=== PATIENT | female | born 2000 | race Caucasian/White ===

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

== ENCOUNTER 2018-06-16 22:39 | Emergency (ER) | payer OTHER ==
[~2018-06-16] VITALS: Ht 165.1 cm; Wt 104.5 kg
[~2018-06-16 22:39] MED LIST changes: +CIPRO 500MG TA500 MG PO; +FLAGYL500 MG PO
[2018-06-16 22:45] VITALS: BP 122/79; TEMP 98.5
[2018-06-16] MEDS ORDERED: PROZAC 20MG20 MG PO (22:50)
[2018-06-16] MEDS ORDERED: PROZAC 10MG10 MG PO (22:50)
[2018-06-16] MEDS ORDERED: MIRENA52 MG IY (22:50)
[2018-06-16 23:39] LABS: BASO # 0.1 (0.0-0.2); BASO % 0.6 % (0.0-2.0); EOS # 0.3 (0.0-0.7); EOS % 3.7 % (0-4.0); GRAN # 4.7 (1.4-6.5); GRAN % 53.5 % (42.2-75.2); HEMATOCRIT 39.2 % (35.0-45.0); HEMOGLOBIN 12.6 g/dl (12.0-15.0); LYMPH # 3.1 (1.2-3.4); LYMPH % 35.2 % (20.0-51.0); MEAN CELL VOLUME 82 fl (80.0-95.0); MEAN CORPUSCULAR HEMOGLOBIN 26 pg (26.0-32.0); MEAN CORPUSCULAR HGB CONC 32 g/dl (33.0-37.0); MEAN PLATELET VOLUME 10.7 fl (7.4-10.4); MONO # 0.6 (0.1-0.6); MONO % 6.8 % (1.7-9.3); PLATELET COUNT 241 K/mm3 (130-400); RED BLOOD COUNT 4.77 M/mm3 (4.10-5.30); REDCELL DISTRIBUTION WIDTH-CV 15.1 % (11.5-14.5)
[2018-06-16 23:44] LABS: PROTHROMBIN TIME 11.9 SECONDS (9.7-12.8)
[2018-06-16 23:52] LABS: ALANINE AMINOTRANSFERASE 22 U/L (9-52); ALKALINE PHOSPHATASE 84 U/L (50-136); ANION GAP 9 mmol/L (7-16); AST,SGOT 20 U/L (15-37); BILIRUBIN,TOTAL 0.2 mg/dL (0.0-1.0); BLOOD UREA NITROGEN 11 mg/dL (7-17); C-REACTIVE PROTEIN 1.2 mg/dL (0.0-0.9); CALCIUM 9.3 mg/dL (8.4-10.2); CARBON DIOXIDE 26 mmol/L (22-30); CHLORIDE 103 mmol/L (98-107); CREATININE, serum 0.64 (0.52-1.25); GLUCOSE 96 mg/dL (74-106); MAGNESIUM 1.7 mg/dL (1.6-2.3); POTASSIUM 4.1 mmol/L (3.4-5.0); SODIUM 137 mmol/L (137-145); TOTAL PROTEIN 7.6 gm/dL (6.4-8.2)
[2018-06-17 00:01] LABS: TROPONIN-I < 0.012 ng/mL (0.000-0.035)
[2018-06-17 00:38] VITALS: PULSE 67
== END 2018-06-17 00:36 | disposition home or self-care (01) ==
LOC: COL.ER 22:39
PROVIDERS: Emergency Medicine
DX: N64.4 Mastodynia (principal); R07.9 Chest pain, unspecified; Z87.891 Personal history of nicotine dependence

== ENCOUNTER 2018-06-25 12:17 | Emergency (ER) | payer OTHER ==
[~2018-06-25] VITALS: Ht 165.1 cm; Wt 104.5 kg
[~2018-06-25 12:17] MED LIST changes: +MIRENA52 MG IY; +PROZAC 10MG10 MG PO; +PROZAC 20MG20 MG PO
[2018-06-25 12:33] VITALS: BP 129/91
[2018-06-25] MEDS ORDERED: BACTRIM DS 8001 TAB PO (13:45)
[2018-06-25] MEDS ORDERED: CEPHALEXIN500 M1 PO (13:45)
[2018-06-25 14:12] VITALS: TEMP 98.7
[2018-06-25 14:28] VITALS: PULSE 119
== END 2018-06-25 14:28 | disposition home or self-care (01) ==
LOC: COL.ER 12:17
DX: L03.112 Cellulitis of left axilla (principal); Z87.891 Personal history of nicotine dependence

== ENCOUNTER 2018-11-14 01:38 | Emergency (ER) | payer OTHER ==
[~2018-11-14] VITALS: Ht 165.1 cm; Wt 110.0 kg
[~2018-11-14 01:38] MED LIST changes: +BACTRIM DS 8001 TAB PO; +CEPHALEXIN500 M1 PO
[2018-11-14 01:41] VITALS: TEMP 98.6
[2018-11-14 01:58] LABS: COLLECTION METHOD CLEAN CATCH
[2018-11-14 02:03] LABS: MUCOUS Present /lpf; PH 6 (5-8); URINE APPEARANCE Hazy; URINE BACTERIA Rare /hpf; URINE BILIRUBIN Negative (NEGATIVE); URINE BLOOD Negative (NEGATIVE); URINE COLOR Yellow; URINE GLUCOSE Negative (NEGATIVE); URINE KETONE Negative (NEGATIVE); URINE LEUKOCYTE ESTERASE 2+ (NEGATIVE); URINE NITRATE Negative (NEGATIVE); URINE PROTEIN(semi-quant) Negative (NEGATIVE); URINE UROBILINOGEN Negative (NEGATIVE)
[2018-11-14] MEDS ORDERED: CEPHALEXIN500 M1 PO (02:06)
[2018-11-14 02:45] VITALS: BP 134/82; PULSE 80
== END 2018-11-14 02:45 | disposition home or self-care (01) ==
LOC: COL.ER 01:38
PROVIDERS: Emergency Medicine
DX: N76.0 Acute vaginitis (principal); N39.0 Urinary tract infection, site not specified; B96.89 Other specified bacterial agents as the cause of diseases classified elsewhere

== ENCOUNTER 2019-01-01 07:18 | Emergency (ER) | payer OTHER ==
[~2019-01-01] VITALS: Ht 165.1 cm; Wt 111.4 kg
[2019-01-01 07:31] VITALS: TEMP 98.7
[2019-01-01 08:31] LABS: BASO % 0.4 % (0.0-2.0); EOS # 0.3 (0.0-0.7); EOS % 3.9 % (0-4.0); GRAN # 4.5 (1.4-6.5); GRAN % 63.7 % (42.2-75.2); LYMPH # 1.7 (1.2-3.4); LYMPH % 24.5 % (20.0-51.0); MEAN CELL VOLUME 85 fl (80.0-95.0); MEAN CORPUSCULAR HEMOGLOBIN 27 pg (26.0-32.0); MEAN CORPUSCULAR HGB CONC 32 g/dl (33.0-37.0); MONO # 0.5 (0.1-0.6); MONO % 7.2 % (1.7-9.3); PLATELET COUNT 226 K/mm3 (130-400); RED BLOOD COUNT 4.85 M/mm3 (4.10-5.30); REDCELL DISTRIBUTION WIDTH-CV 15.2 % (11.5-14.5)
[2019-01-01 08:41] LABS: ALBUMIN 4.3 gm/dL (3.5-5.0); BILIRUBIN,TOTAL 0.2 mg/dL (0.0-1.0); C-REACTIVE PROTEIN 1.5 mg/dL (0.0-0.9); CALCIUM 8.6 mg/dL (8.4-10.2); CREATININE, serum 0.68 (0.52-1.25); POTASSIUM 3.7 mmol/L (3.4-5.0); TOTAL PROTEIN 7.7 gm/dL (6.4-8.2)
[2019-01-01 09:33] LABS: COLLECTION METHOD CLEAN CATCH
[2019-01-01 09:45] LABS: MUCOUS Present /lpf; PH 5 (5-8); URINE APPEARANCE Hazy; URINE BACTERIA Rare /hpf; URINE BILIRUBIN Negative (NEGATIVE); URINE BLOOD Negative (NEGATIVE); URINE COLOR Yellow; URINE GLUCOSE Negative (NEGATIVE); URINE KETONE Negative (NEGATIVE); URINE LEUKOCYTE ESTERASE Negative (NEGATIVE); URINE NITRATE Negative (NEGATIVE); URINE PROTEIN(semi-quant) 1+ (NEGATIVE); URINE RBC 0-2 /hpf; URINE UROBILINOGEN Negative (NEGATIVE)
[2019-01-01] MEDS ORDERED: FLAGYL500 MG PO (11:13)
[2019-01-01 11:45] VITALS: BP 119/62; PULSE 71
== END 2019-01-01 11:45 | disposition home or self-care (01) ==
LOC: COL.ER 07:18
PROVIDERS: Family Medicine
DX: A04.72 Enterocolitis due to Clostridium difficile, not specified as recurrent (principal)
CPT/HCPCS: J2405; J7030

== ENCOUNTER 2020-03-15 03:57 | Emergency (ER) | payer OTHER ==
[~2020-03-15] VITALS: Ht 165.1 cm; Wt 110.9 kg
[2020-03-15 04:10] VITALS: BP 127/77; TEMP 98.9
[2020-03-15 04:58] LABS: STREP SCREEN NEGATIVE
[2020-03-15 06:20] VITALS: PULSE 84
== END 2020-03-15 06:20 | disposition home or self-care (01) ==
LOC: COL.ER 03:57
PROVIDERS: Emergency Medicine
DX: J02.9 Acute pharyngitis, unspecified (principal); J35.1 Hypertrophy of tonsils; L53.8 Other specified erythematous conditions; R59.0 Localized enlarged lymph nodes; F17.200 Nicotine dependence, unspecified, uncomplicated; Z20.828 Contact with and (suspected) exposure to other viral communicable diseases
CPT/HCPCS: J0561; J8540

== ENCOUNTER 2021-06-06 11:35 | Emergency (ER) | payer OTHER ==
[~2021-06-06] VITALS: Ht 165.1 cm; Wt 109.1 kg
[2021-06-06 11:41] VITALS: BP 119/82; TEMP 98
[2021-06-06 12:32] LABS: HEMATOCRIT 42.8 % (37.0-47.0); HEMOGLOBIN 13.8 g/dl (12.5-16.0); MEAN CELL VOLUME 85 fl (80.0-100.0); MEAN CORPUSCULAR HEMOGLOBIN 28 pg (27-31); MEAN CORPUSCULAR HGB CONC 32 g/dl (33.0-37.0); MEAN PLATELET VOLUME 10.5 fl (7.4-10.4); PLATELET COUNT 145 K/mm3 (130-400); RED BLOOD COUNT 5.02 M/mm3 (4.10-5.30); REDCELL DISTRIBUTION WIDTH-CV 15.3 % (11.5-14.5)
[2021-06-06 12:33] LABS: STREP SCREEN NEGATIVE
[2021-06-06 12:56] LABS: MONOSCREEN POSITIVE
[2021-06-06] MEDS ORDERED: PREDNISONE20 MG PO (13:03)
[2021-06-06 13:31] LABS: BAND 3 % (0-10); BASOPHIL 1 % (0-2); EOSINOPHIL 1 % (0-4); LYMPHOCYTE 57 % (20.0-51.0); NEUTROPHILS 29 % (42.0-75.2); PLATELET ESTIMATE NORMAL (NORMAL)
[2021-06-06 13:33] VITALS: PULSE 62
== END 2021-06-06 13:33 | disposition home or self-care (01) ==
LOC: COL.ER 11:35
PROVIDERS: Family Medicine
DX: B27.90 Infectious mononucleosis, unspecified without complication (principal); Z87.891 Personal history of nicotine dependence; Z20.822 Contact with and (suspected) exposure to COVID-19
CPT/HCPCS: J7512

== ENCOUNTER 2021-06-15 01:48 | Emergency (ER) | payer OTHER ==
[~2021-06-15] VITALS: Ht 165.1 cm; Wt 109.1 kg
[~2021-06-15 01:48] MED LIST changes: +PREDNISONE20 MG PO
[2021-06-15 01:53] VITALS: TEMP 98.5
[2021-06-15 02:19] LABS: HEMOGLOBIN 13.8 g/dl (12.5-16.0); MEAN CELL VOLUME 84 fl (80.0-100.0); MEAN CORPUSCULAR HEMOGLOBIN 28 pg (27-31); MEAN CORPUSCULAR HGB CONC 33 g/dl (33.0-37.0); MEAN PLATELET VOLUME 10.1 fl (7.4-10.4); PLATELET COUNT 196 K/mm3 (130-400); RED BLOOD COUNT 5.02 M/mm3 (4.10-5.30)
[2021-06-15 02:29] LABS: COLLECTION METHOD CLEAN CATCH
[2021-06-15 02:37] LABS: MUCOUS Present (NOT PRESENT); PH 5 (5-8); URINE APPEARANCE Cloudy (CLEAR/HAZY); URINE BACTERIA Rare /hpf (NONE SEEN); URINE BILIRUBIN Negative (NEGATIVE); URINE BLOOD 1+ (NEGATIVE); URINE COLOR Yellow (YELLOW); URINE GLUCOSE Negative (NEGATIVE); URINE KETONE Negative (NEGATIVE); URINE LEUKOCYTE ESTERASE Trace (NEGATIVE); URINE NITRATE Negative (NEGATIVE); URINE PROTEIN(semi-quant) Negative (NEGATIVE); URINE UROBILINOGEN Negative (NEGATIVE)
[2021-06-15 02:37] LABS: ALBUMIN 3.5 gm/dL (3.5-5.0); BILIRUBIN,TOTAL 0.3 mg/dL (0.2-1.2); CALCIUM 8.7 mg/dL (8.4-10.2); CREATININE, serum 0.78 mg/dL (0.57-1.11); POTASSIUM 4.2 mmol/L (3.5-4.5); TOTAL PROTEIN 7.2 gm/dL (6.2-8.1)
[2021-06-15 02:49] LABS: BAND 1 % (0-10); BASOPHIL 1 % (0-2); LYMPHOCYTE 57 % (20.0-51.0); NEUTROPHILS 36 % (42.0-75.2)
[2021-06-15 02:52] LABS: SCHISTOCYTES 1+; TEAR DROP CELLS 1+
[2021-06-15] MEDS ORDERED: PREDNISONE50 MG PO (02:52)
[2021-06-15 03:00] VITALS: BP 150/91; PULSE 97
== END 2021-06-15 03:00 | disposition home or self-care (01) ==
LOC: COL.ER 01:48
PROVIDERS: Student in an Organized Health Care Education/Training Program
DX: B27.90 Infectious mononucleosis, unspecified without complication (principal)
CPT/HCPCS: J7512

== ENCOUNTER 2021-10-28 12:31 | Emergency (ER) | payer OTHER ==
[~2021-10-28] VITALS: Ht 167.6 cm; Wt 115.5 kg
[~2021-10-28 12:31] MED LIST changes: +PREDNISONE50 MG PO
[2021-10-28 12:46] VITALS: TEMP 98.1
[2021-10-28] MEDS ORDERED: PREDNISONE10 MG PO (13:26)
[2021-10-28] MEDS ORDERED: TRIAM OI 0.1 80 TOP (13:28)
[2021-10-28 13:44] VITALS: BP 121/77; PULSE 82
[2021-10-29] MEDS ORDERED: PREDNISONE10 MG PO ×2 (14:37→14:40)
== END 2021-10-28 13:46 | disposition home or self-care (01) ==
LOC: COL.ER 12:31
DX: L25.9 Unspecified contact dermatitis, unspecified cause (principal)

== ENCOUNTER 2021-10-29 21:49 | Emergency (ER) | payer OTHER ==
[~2021-10-29 21:49] MED LIST changes: +PREDNISONE10 MG PO; +TRIAM OI 0.1 80 TOP
== END 2021-10-29 22:01 | disposition left against medical advice (07) ==
LOC: COL.ER 21:49
DX: R69 Illness, unspecified (principal)